=== PATIENT | male | born 1995 | race African-American/Black ===

== ENCOUNTER 2020-12-24 15:09 | Emergency (ER) | payer OTHER ==
[~2020-12-24] VITALS: Ht 182.9 cm; Wt 81.6 kg
[2020-12-24] MEDS ORDERED: KETO10TA2 PO (15:43)
[2020-12-24] MEDS ORDERED: TYLENOL ARTHRI650 MG PO (16:12)
[2020-12-24] MEDS ORDERED: TYLENOL325 MG PO (16:13)
[2020-12-24] MEDS ORDERED: TYLENOL325 M1 PO (16:14)
[2020-12-24] MEDS ORDERED: TYLENOL325 M1 (16:18)
== END 2020-12-24 15:30 | disposition home or self-care (01) ==
LOC: ER 15:09
DX: T23.102A Burn of first degree of left hand, unspecified site, initial encounter (principal); Y27.8XXA Contact with other hot objects, undetermined intent, initial encounter; Y92.89 Other specified places as the place of occurrence of the external cause